=== PATIENT | male | born 1955 | race Caucasian/White ===

== ENCOUNTER → 2016-12-01 | Outpatient (CLI) | payer BC ==
[2016-12-01 13:29] LABS: ESTIMATED AVERAGE GLUCOSE 151 mg/dl; HA1C FLAG Normal (Normal)
[2016-12-01 13:37] LABS: PROSTATE SPECIFIC ANTIGEN 1.69 ng/ml (0.000-4.000); THYROID STIMULATING HORMONE 1.65 uIu/ml (0.300-4.500)
== END | disposition home or self-care (01) ==
LOC: C.LABMFLN 07:39
PROVIDERS: ATTEND Family Medicine
DX: Z12.5 Encounter for screening for malignant neoplasm of prostate (principal); N40.0 Benign prostatic hyperplasia without lower urinary tract symptoms; E11.9 Type 2 diabetes mellitus without complications

== ENCOUNTER → 2017-03-09 | Outpatient (CLI) | payer BC ==
[2017-03-09 12:58] LABS: BASO % 0.4 %; BASO ABS # 0.02 K/uL (0-0.2); COMPLETE YES; EOS % 6.9 %; HEMATOCRIT 43.8 % (42-52); IG% 0.2 %; LYMPH % 26.4 %; LYMPH ABS # 1.46 K/uL (1.2-3.4); MEAN CELL VOLUME 81.9 fL (80-100); MEAN CORPUSCULAR HEMOGLOBIN 27.5 pg (25-34); MEAN CORPUSCULAR HGB CONC 33.6 g/dl (32-36); MONO % 8.1 %; PLATELET COUNT 167 K/uL (130-400); RED BLOOD COUNT 5.35 M/uL (4.7-6.1); WHITE BLOOD COUNT 5.53 K/uL (4.8-10.8)
[2017-03-09 13:21] LABS: ESTIMATED AVERAGE GLUCOSE 151 mg/dl; HA1C FLAG Normal (Normal)
[2017-03-09 13:45] LABS: ALT/SGPT 47 U/L (12-78); AST/SGOT 21 U/L (15-37); BLOOD UREA NITROGEN 16 mg/dl (7-18); BUN/CREATININE RATIO 14.7 (10-20); CARBON DIOXIDE 31 mmol/L (21-32); CHLORIDE 103 mmol/L (98-107); CHOLESTEROL 169 mg/dl (0-200); GLUCOSE 141 mg/dl (70-99); POTASSIUM 4.2 mmol/L (3.5-5.1); SODIUM 140 mmol/L (136-145)
[2017-03-09 13:48] LABS: ALB/GLOB RATIO 1.2 (0.9-2); ALKALINE PHOSPHATASE 79 U/L (45-117); CALCIUM 8.9 mg/dl (8.5-10.1); CHOLESTEROL/HDL RATIO 2.9; HDL CHOLESTEROL 58 mg/dl; LDL CHOLESTEROL CALCULATED 85 mg/dl; TRIGLYCERIDES 129 mg/dl (0-150); VERY LOW DENSITY LIPOPROT CALC 26 mg/dl
== END | disposition home or self-care (01) ==
LOC: C.LABMFLN 08:55
PROVIDERS: ATTEND Family Medicine
DX: I10 Essential (primary) hypertension (principal); E11.9 Type 2 diabetes mellitus without complications; E78.5 Hyperlipidemia, unspecified

== ENCOUNTER → 2017-06-13 | Outpatient (CLI) | payer BC ==
[2017-06-13 13:40] LABS: ESTIMATED AVERAGE GLUCOSE 148 mg/dl; HA1C FLAG Normal (Normal)
== END | disposition home or self-care (01) ==
LOC: C.LABMFLN 08:11
PROVIDERS: ATTEND Family Medicine
DX: E11.9 Type 2 diabetes mellitus without complications (principal)

== ENCOUNTER → 2017-09-15 | Outpatient (CLI) | payer BC ==
[2017-09-15 13:12] LABS: ESTIMATED AVERAGE GLUCOSE 151 mg/dl; HA1C FLAG Normal (Normal)
[2017-09-15 13:45] LABS: RATIO 94.6 mcg/mg (0-30.0)
== END | disposition home or self-care (01) ==
LOC: C.LABMFLN 08:13
PROVIDERS: ATTEND Family Medicine
DX: E11.9 Type 2 diabetes mellitus without complications (principal)

== ENCOUNTER → 2017-10-26 | Outpatient (CLI) | payer BC ==
--- NOTE | 2017-10-26 10:18 | DIAGNOSTIC IMAGING REPORT ---
FUSION CT SINUSES W/O HISTORY: 62 years-old Male J33.9 Nasal -[id number]-[id number] MALE WITH SEVERE LEFT GREATER THAN nasal polyps. COMPARISON: None available TECHNIQUE: Multiple axial CT images of the paranasal sinuses were obtained without contrast. Impossible Software images also submitted. A dose lowering technique was used consistent with the principals of AVELINA. FINDINGS: The mastoid air cells and middle ear cavities are generally clear. There is moderate mucoperiosteal thickening on the right with moderate to severe mucoperiosteal thickening on the left. Areas of polypoid mucosal thickening are noted centrally within the left maxillary sinus medially measuring up to 1.8 x 1.0 cm. Postoperative changes from prior bilateral maxillary antrostomy. Areas of polypoid mucosal thickening are seen extending from the left nasal turbinate into the left maxillary sinus. There is a 1.7 cm polypoid lesion abutting the nasal septum is in the left nasal turbinate on image 25 series 2. Polypoid mucosal thickening measure up to 1.5 cm is noted within the posterior right nasal turbinate adjacent to the posterior nasal choana. There is a large 3.2 x 1.47 m area of polypoid mucosal thickening in the region of the mid left nasal turbinate on image 30 series 2. There is severe mucosal thickening of the ethmoid air cells. The right frontal sinuses are completely opacified. Severe polypoid mucosal thickening with associated marginal bony remodeling involves the left frontal sinus. There is mucosal opacification of the bilateral frontoethmoidal and sphenoethmoidal recesses. Right maxillary ostiomeatal unit is patent. Polypoid mucosal opacification of the left maxillary ostiomeatal unit. Mild leftward bowing and spurring of the nasal septum. No large radha bullosa. Olga juice appears normal. Soft tissues are unremarkable. 5 x 4 mm soft tissue attenuating lesion adjacent to the superficial left parotid suggests a normal lymph node. The imaged intracranial structures demonstrate no acute abnormality. IMPRESSION: Extensive mucoperiosteal and polypoid mucosal thickening of the paranasal sinuses and nasal turbinates as above. The above report was generated using voice recognition software. It may contain grammatical, syntax or spelling errors. Electronically signed by: Moe Gutiérrez M.D. 10/26/2017 10:17 AM Dictated Date/Time: 10/26/2017 10:08 AM
== END | disposition home or self-care (01) ==
LOC: C.CTS 08:57
DX: J33.9 Nasal polyp, unspecified (principal)

== ENCOUNTER → 2017-11-02 | Outpatient (CLI) | payer BC ==
[2017-11-02 12:47] LABS: BASO % 0.3 %; BASO ABS # 0.02 K/uL (0-0.2); EOS % 3.1 %; EOS ABS # 0.19 K/uL (0-0.5); HEMATOCRIT 44.2 % (42-52); HEMOGLOBIN 14.9 g/dL (14.0-18.0); IG# 0.01 K/uL (0.00-0.02); LYMPH ABS # 1.46 K/uL (1.2-3.4); MEAN CELL VOLUME 83.6 fL (80-100); MEAN CORPUSCULAR HEMOGLOBIN 28.2 pg (25-34); MEAN CORPUSCULAR HGB CONC 33.7 g/dl (32-36); MEAN PLATELET VOLUME 11.1 fL (7.4-10.4); MONO % 7.1 %; MONO ABS # 0.43 K/uL (0.11-0.59); NEUT % 65.3 %; NEUT ABS # 3.98 K/uL (1.4-6.5); PLATELET COUNT 146 K/uL (130-400); RED CELL DISTRIBUTION WIDTH SD 39.2 fL (36.4-46.3); WHITE BLOOD COUNT 6.09 K/uL (4.8-10.8)
[2017-11-02 13:03] LABS: INR 0.9 (0.9-1.1); PTT PATIENT 23.3 SECONDS (21.0-31.0)
[2017-11-02 13:13] LABS: POTASSIUM 3.8 mmol/L (3.5-5.1)
== END | disposition home or self-care (01) ==
LOC: C.LABMFLN 10:01
DX: Z01.812 Encounter for preprocedural laboratory examination (principal)

== ENCOUNTER → 2017-11-17 | Day surgery (SDC) | payer BC ==
[2017-11-13 11:24] VITALS: Ht 188 cm; Wt 100.0 kg
[~2017-11-17] VITALS: Ht 188 cm; Wt 100.0 kg
[~2017-11-17] MED LIST: AMLO-114 PO; ASPI81TA28 PO; ASTIN/15 NAE; ATROPINE SULFATE 0.1 MG/ML 5ML SYR IV PRN; BISO2.5T PO; CEFAZOLIN 2000MG IV PUSH 15 ML IV SCH; CHECK SCOPOLAMINE PATCH PLACEMENT SCH; CYAN10005 PO; CZR50 PO; DEXAMETHASONE SOD INJ 4 MG/ML VIAL ONE; ESCI1TAB18 PO; EpHEDrine SULFATE INJ 50 MG/ML AMP IV PRN; EpINEphrine INJ 1MG/ML AMP 1 MG/ML AMP ONE; FENTANYL CITRATE INJ 50 MCG/1 ML 2 ML VIAL IV PRN; FENTANYL CITRATE INJ 50 MCG/1 ML 2 ML VIAL ONE; GLYCOPYRROLATE INJ 0.2 MG/ML VIAL ONE; HYDROCODONE/ACETAMIN 5/325MG TAB PO PRN; LACTATED RINGER'S 1000ML 1,000 ML IV SCH; LEVO25TA5 PO; LIDOCAINE 4% MPF SOAK 5 ML = 1 DOSE TOP ONE; LIDOCAINE HCL 2% 2 ML VIAL (20MG/ML) ONE; LIDOCAINE/EPINEPHRINE 1% 20 ML VIAL ONE; METF1000 PO; MIDAZOLAM HCL 1 MG/ML 2ML VIAL ONE; MOME6000 NAE; MONT1TAB3 PO; NEOSTIGMINE METHYLSULFATE 5 MG/5 ML SYR ONE; ONDANSETRON INJ 2 MG/ML 2 ML VIAL IV PRN; ONDANSETRON INJ 2 MG/ML 2 ML VIAL ONE; OXYMETAZOLINE HCL 0.05% NA SPR 15 ML BTL PRN; OXYMETAZOLINE HCL 0.05% NA SPR 15 ML BTL SCH; PROPOFOL IV EMULSION 10 MG/ML 20 ML VIAL IV ONE; SCOPOLAMINE 1.5 MG TDSY TD ONE; SIMV40TA2 PO; TRIAMCINOLONE ACET 40 MG/ML VIAL ONE
--- NOTE | 2017-11-17 08:05 | History & Physical Bridge - SC ---
H&P Re-Evaluation Bridge Note: I have examined the patient, reviewed the History & Physical and in the interval since the performance of the History & Physical I have noted the following changes of clinical significance: No changes noted
--- NOTE | 2017-11-17 09:51 | [facility] Operative Report ---
Operative Report Operative Date Nov 17, 2017. Pre-Operative Diagnosis Nasal polyps, Hypertrophy of both inferior nasal turbinates, Chronic sinusitis, Nasal septal deviation Post-Operative Diagnosis Same as preop Procedure(s) Performed IMAGE-GUIDED REVISION BILATERAL ENDOSCOPIC SINUS SURGERY AND INFERIOR TURBINATE REDUCTION WITH ENDOSCOPIC SEPTOPLASTY Surgeon Dr. Durham Certified Legal Investigator Surgeon(s) None Estimated Blood Loss 100ML Findings SEVERE SINONASAL POLYPOSIS INVOLVING ALL OF THE PARANASAL SINUSES; SEVERE LEFT POSTERIOR SEPTAL DEVIATION DUE TO SEPTAL SPUR, AND R>L INFERIOR TURBINATE HYPERTROPHY Specimens A: Left nasal polyp B: Right nasal polyp C: Left sphenoid polyp D: Right sphenoid contents Anesthesia Type General I attest to the content of the Intraoperative Record and any orders documented therein. Any exceptions are noted below.
--- NOTE | 2017-11-17 09:54 | Discharge Instructions ---
Discharge Instructions Date of Service Nov 17, 2017. Admission Reason for Admission: Nasal Polyps, Hypertrophy Inferior Nasal Turbinate Discharge Discharge Diagnosis / Problem: SAME Discharge Goals Goal(s): Therapeutic intervention Activity Recommendations Activity Limitations: as noted below LIGHT ACTIVITY AND NO NOSE BLOWING FOR 2 WEEKS; NO DRIVING WHILE ON NORCO . Current Hospital Diet Patient's current hospital diet: Discharge Diet Recommended Diet: Regular Diet Procedures Procedures Performed: IMAGE-GUIDED REVISION BILATERAL ENDOSCOPIC SINUS SURGERY AND INFERIOR TURBINATE REDUCTION WITH ENDOSCOPIC SEPTOPLASTY Pending Studies Studies pending at discharge: no Laboratory Results Hemoglobin A1c Test 09/15/17 08:16 Range/Units Estimated Average Glucose 151 mg/dl Hemoglobin A1c 6.9 H 4.5-5.6 % Medical Emergencies . Who to Call and When: Medical Emergencies: If at any time you feel your situation is an emergency, please call 911 immediately. . Non-Emergent Contact Non-Emergency issues call your: Surgeon . . "Provider Documentation" section prepared by Jerry Durham. . VTE Core Measure Inpt VTE Proph given/why not?: SCD's
--- NOTE | 2017-11-17 10:56 | Anesthesia Progress Nt - [facility] ---
Anesthesia Post Op Note Date & Time Nov 17, 2017 at 10:56 Vital Signs Pain Intensity: 4 Vital Signs Past 12 Hours Date Time Temp Pulse Resp B/P (MAP) Pulse Ox O2 Delivery O2 Flow Rate FiO2 11/17/17 10:30 36.4 72 16 129/78 (95) 100 Room Air 11/17/17 10:28 80 11/17/17 10:28 80 100 11/17/17 10:25 36.6 76 20 125/85 98 Room Air 11/17/17 10:25 125/85 11/17/17 10:23 84 15 11/17/17 10:23 85 15 99 11/17/17 10:20 129/86 11/17/17 10:18 82 12 97 11/17/17 10:18 82 12 11/17/17 10:17 82 14 97 11/17/17 10:17 83 14 11/17/17 10:16 82 24 11/17/17 10:16 81 24 130/68 96 11/17/17 10:11 80 10 100 11/17/17 10:11 79 10 11/17/17 10:10 127/79 11/17/17 10:06 81 11 100 11/17/17 10:06 81 11 11/17/17 10:05 126/80 11/17/17 10:04 82 13 11/17/17 10:04 81 13 100 11/17/17 10:00 135/81 11/17/17 09:59 88 12 11/17/17 09:59 88 12 99 11/17/17 09:55 141/80 11/17/17 09:55 131/84 11/17/17 09:54 36.6 90 16 131/84 99 Mask 8 11/17/17 07:50 36.5 66 16 150/86 (107) 99 Room Air Notes Mental Status: alert / awake / arousable, participated in evaluation Pt Amnestic to Procedure: Yes Nausea / Vomiting: adequately controlled Pain: adequately controlled Airway Patency, RR, SpO2: stable & adequate BP & HR: stable & adequate Hydration State: stable & adequate Anesthetic Complications: no major complications apparent
--- NOTE | 2017-11-17 11:05 | OPERATIVE REPORT ---
DATE OF OPERATION: 11/17/2017 PREOPERATIVE DIAGNOSES: 1. Chronic polypoid rhinosinusitis. 2. Left septal deviation. 3. Right greater than left inferior turbinate hypertrophy. POSTOPERATIVE DIAGNOSES: 1. Chronic polypoid rhinosinusitis. 2. Left septal deviation. 3. Right greater than left inferior turbinate hypertrophy. PROCEDURES: L3tronic fusion image guided revision bilateral endoscopic sinus surgery consisting of: 1. Bilateral revision maxillary antrostomies. 2. Bilateral revision complete ethmoidectomies. 3. Bilateral revision balloon sinuplasty assisted frontal sinusotomies. 4. Bilateral revision sphenoidotomies. 5. Revision endoscopic septoplasty. 6. Revision bilateral inferior turbinate outfracture and turbinoplasty. SURGEON: Dr. Jerry Durham. ANESTHESIA: General endotracheal. ESTIMATED BLOOD LOSS: 100 mL. FINDINGS: 1. Severe left greater than right sinonasal polyposis involving all of the paranasal sinuses. 2. Moderately severe left posterior septal deviation due to large bony septal spur. 3. Right greater than left inferior turbinate hypertrophy. SPECIMENS: Right and left nasal polyp as well as right and left sphenoid sinus contents for permanent pathological assessment and left frontal sinus polyp. COMPLICATIONS: None. INDICATIONS FOR THE PROCEDURE: The patient is a pleasant 62-year-old male who underwent previous endoscopic sinus surgery by Dr. Wei in the [facility] [place] area, who has had recurrent chronic polypoid rhinosinusitis unresponsive to maximal medical therapy including systemic antibiotics, systemic steroids, and topical nasal steroids. A posttreatment fusion CT scan of the sinuses revealed pansinusitis, left septal deviation, and right greater than left inferior turbinate hypertrophy. He presents for the above-mentioned procedure on an outpatient elective basis. DESCRIPTION OF PROCEDURE: After informed consent had been obtained from the patient, the patient was wheeled to the operating room and placed on the operating table in the supine position. Monitors were placed. After induction of general endotracheal anesthesia, the patient was prepped in the usual fashion for image guided endoscopic sinus surgery. The [employer] fusion headset was placed over the forehead and was registered and calibrated and used throughout the case. Lidocaine and epinephrine pledgets were placed into the bilateral nasal cavities and pressure applied. The left-sided pledgets were removed. There was a large left nasal polyp filling the majority of the left nasal cavity. This was injected with 1% lidocaine with 1:100,000 epinephrine. The right side was then addressed in a similar fashion with a similar large nasal polyp, although this was not as large as the left hand side and there was polyposis both medial and lateral to the remnant middle turbinate. Lidocaine and epinephrine pledget was placed into the right nasal cavity. A straight Blakesley forceps was used to remove the large left nasal polyp, which was sent off for permanent pathological assessment. After removal of the polyp, it was found that the patient did not have much of a remnant to his middle turbinate. There was some polypoid change to the remnant, which was removed using powered instrumentation. The patient's left maxillary antrostomy was enlarged anteriorly, inferiorly, and posteriorly using primarily powered instrumentation. There was mild mucosal thickening and polyposis within the left maxillary sinus, which was removed using powered instrumentation. A revision complete ethmoidectomy was then performed using powered instrumentation and there was diffuse severe polyposis involving the majority of the ethmoid air cells. Using image guidance and the straight Magaña suction, the left sphenoid sinus ostium was identified. There was a large polyp filling the majority of the sinus and this was removed using straight Blakesley forceps and was sent off for permanent pathological assessment. The medial and inferior aspect of the sphenoid sinus was then enlarged using powered instrumentation. Using a curved frontal sinus suction, the left frontal sinus was cannulated. The suction was removed. A #6 frontal sinus balloon was then used to dilate the frontal recess tract by inflating it to 12 atmospheres of pressure in 3 different locations. Immediately, there was a polyp within the left frontal sinus, which was removed using a 45-degree Blakesley forceps. Powered instrumentation was used to remove polypoid tissue from the left frontal recess tract and a frontal sinusotomy was performed. A lidocaine and epinephrine pledget was then placed into the left ethmoid cavity. The right side was then addressed in a similar fashion with similar intraoperative findings except that there was not a polyp per se within the frontal sinus on this side and therefore, there was no other specimen from the frontal sinus. Once again, there were specimens from the right nasal cavity and right sphenoid sinus. There was a remnant of the middle turbinate, which was left undisturbed as much as possible, but there was polypoid tissue involving the lateral aspect of the middle turbinate and this was removed using powered instrumentation. The patient had a posterior septal deviation to the left hand side. The decision was made to perform an endoscopic septoplasty. The septal mucosa was injected with 1% lidocaine with 1:100,000 epinephrine. Using a caudal elevator, an incision was made just anterior to the bony septal spur and the caudal elevator was used to elevate the mucoperiosteum off of the bone. Using the caudal elevator, dissection was carried circumferentially around the bony septal spur, which was triangular. Using Rafael forceps, the bony septal spur was then removed and the mucosa was redraped in its natural position. Care was taken not to cause a perforation. The patient already had a preexisting posterior septal perforation, which was small and approximately 5 mm in greatest dimension. This did not enlarge with removal of the bony septal spur. A Sanchez elevator was then used to infracture and subsequently outfracture the inferior turbinates bilaterally. The inferior turbinates were injected with 1% lidocaine with 1:100,000 epinephrine. Using a 2.0-mm turbinate blade and powered instrumentation, bilateral inferior turbinoplasties were then performed in a submucosal fashion. The sinonasal cavities were then suctioned. Stammberger nasal dressing mixed 1:1 with Kenalog 40 mg per mL was then injected into the frontal ethmoid recesses and ethmoid cavities. The nasal cavities and nasopharynx were suctioned. An orogastric tube was placed and the stomach was suctioned free of air and stomach contents. This marked the end of the case. The patient tolerated the procedure well. There were no apparent complications. The patient was extubated and transferred to recovery room in stable condition. I attest to the content of the Intraoperative Record and any orders documented therein. Any exception s are noted below.
[2017-11-17 11:10] VITALS: BP 121/77; PULSE 71; O2SAT 99
== END | disposition home or self-care (01) ==
LOC: X.SURG 07:31
DX: J34.2 Deviated nasal septum (principal); J34.3 Hypertrophy of nasal turbinates; J33.9 Nasal polyp, unspecified; J32.9 Chronic sinusitis, unspecified; J45.909 Unspecified asthma, uncomplicated; I10 Essential (primary) hypertension; N40.0 Benign prostatic hyperplasia without lower urinary tract symptoms; F32.9 Major depressive disorder, single episode, unspecified; E11.9 Type 2 diabetes mellitus without complications; E78.5 Hyperlipidemia, unspecified; E03.9 Hypothyroidism, unspecified; Z82.49 Family history of ischemic heart disease and other diseases of the circulatory system; Z83.3 Family history of diabetes mellitus; Z80.1 Family history of malignant neoplasm of trachea, bronchus and lung; Z79.899 Other long term (current) drug therapy; Z79.82 Long term (current) use of aspirin; Z79.84 Long term (current) use of oral hypoglycemic drugs

== ENCOUNTER → 2017-12-28 | Outpatient (CLI) | payer BC ==
[~2017-12-28] MED LIST changes: -ASPI81TA28 PO; -ASTIN/15 NAE; -ATROPINE SULFATE 0.1 MG/ML 5ML SYR IV PRN; -CEFAZOLIN 2000MG IV PUSH 15 ML IV SCH; -CHECK SCOPOLAMINE PATCH PLACEMENT SCH; -DEXAMETHASONE SOD INJ 4 MG/ML VIAL ONE; -EpHEDrine SULFATE INJ 50 MG/ML AMP IV PRN; -EpINEphrine INJ 1MG/ML AMP 1 MG/ML AMP ONE; -FENTANYL CITRATE INJ 50 MCG/1 ML 2 ML VIAL IV PRN; -FENTANYL CITRATE INJ 50 MCG/1 ML 2 ML VIAL ONE; -GLYCOPYRROLATE INJ 0.2 MG/ML VIAL ONE; -HYDROCODONE/ACETAMIN 5/325MG TAB PO PRN; -LACTATED RINGER'S 1000ML 1,000 ML IV SCH; -LIDOCAINE 4% MPF SOAK 5 ML = 1 DOSE TOP ONE; -LIDOCAINE HCL 2% 2 ML VIAL (20MG/ML) ONE; -LIDOCAINE/EPINEPHRINE 1% 20 ML VIAL ONE; -MIDAZOLAM HCL 1 MG/ML 2ML VIAL ONE; -MOME6000 NAE; -NEOSTIGMINE METHYLSULFATE 5 MG/5 ML SYR ONE; -ONDANSETRON INJ 2 MG/ML 2 ML VIAL IV PRN; -ONDANSETRON INJ 2 MG/ML 2 ML VIAL ONE; -OXYMETAZOLINE HCL 0.05% NA SPR 15 ML BTL PRN; -OXYMETAZOLINE HCL 0.05% NA SPR 15 ML BTL SCH; -PROPOFOL IV EMULSION 10 MG/ML 20 ML VIAL IV ONE; -SCOPOLAMINE 1.5 MG TDSY TD ONE; -TRIAMCINOLONE ACET 40 MG/ML VIAL ONE
[2017-12-28 18:21] LABS: BLOOD UREA NITROGEN 16 mg/dl (7-18); CALCIUM 9.3 mg/dl (8.5-10.1); CARBON DIOXIDE 29 mmol/L (21-32); CREATININE 1.25 mg/dl (0.60-1.40); GLUCOSE 147 mg/dl (70-99); POTASSIUM 3.4 mmol/L (3.5-5.1); SODIUM 136 mmol/L (136-145)
[2017-12-28 18:31] LABS: PHOSPHORUS 2.9 mg/dl (2.5-4.9)
[2017-12-29 08:36] LABS: HEMOGLOBIN A1C 7.5 % (4.5-5.6)
== END | disposition home or self-care (01) ==
LOC: C.LABMFLN 14:48
PROVIDERS: ATTEND Family Medicine
DX: E11.9 Type 2 diabetes mellitus without complications (principal); E03.9 Hypothyroidism, unspecified